=== PATIENT | female | born 1995 | race Caucasian/White ===

== ENCOUNTER 2016-08-07 15:12 | Emergency (ER) | payer OTHER ==
[~2016-08-07] VITALS: Ht 170.2 cm; Wt 125.1 kg
[~2016-08-07 15:12] MED LIST: LATUDA20 MG PO; LEXAPRO10 MG PO; TRAMADOL HCL50 MG PO; ZOFRAN ODT4 MG PO
[2016-08-07 15:53] LABS: HEMATOCRIT 43.7 % (36.0-46.0); MCH 28.2 PG (29.0-34.0); MCHC 33.9 G/DL (30.0-36.0); MCV 83.4 FL (83-99); MEAN PLAT.VOLUME 10.7 uM^3 (9.5-12.4); PLATELET COUNT 334 K/uL (156-360); RBC DIS.WIDTH-CV 12.9 % (11.8-14.6); RBC DIS.WIDTH-SD 39.7 % (39-53); RED BLOOD COUNT 5.24 M/uL (3.80-5.20); WHITE BLOOD COUNT 7.5 K/uL (4.1-10.2)
[2016-08-07 16:04] LABS: CHLORIDE 101 mEq/L (99-109); SODIUM 136 mEq/L (136-147)
[2016-08-07 16:06] LABS: GLUCOSE 87 mg/dL (70-99)
[2016-08-07 16:07] LABS: ANION GAP 11 MEQ/L (2-14)
[2016-08-07 16:10] LABS: GFR ESTIMATE (CALCULATED) > 59 mL/min/
[2016-08-07 16:11] LABS: UREA NITROGEN (BUN) 8 mg/dL (9-23)
[2016-08-07] MEDS ORDERED: MECLIZINE HCL25 MG PO (19:24)
[2016-08-07 19:50] VITALS: BP 135/85
== END 2016-08-07 19:52 | disposition home or self-care (01) ==
LOC: EME 15:12
DX: R42 Dizziness and giddiness (principal)
CPT/HCPCS: 71020; 80048; 85027; 93005; 99281; 99284